=== PATIENT | female | born 1970 | race Caucasian/White ===

== ENCOUNTER 2016-12-07 10:42 | Emergency (ER) | payer MEDICAID ==
[2016-12-07 11:28] VITALS: BP 125/76
--- NOTE | 2016-12-07 13:01 | UC ---
Respiratory Complaint HPI - HPI Summary HPI Summary: Patient presents with two day onset sinus pain, pressure, with nasal stuffiness and sore throat. She reports dry cough and general feeling of fatigue amnd malaise. She denies headache, fever, chill, nausea or vomiting. She denies recent travel, ill contacts. - History of Current Complaint Chief Complaint: UCRespiratory Stated Complaint: SINUS ISSUE Time Seen by Provider: 12/07/16 12:25 Hx Obtained From: Patient Onset/Duration: Gradual Onset, Lasting Days Timing: Constant Severity Initially: Moderate Severity Currently: Moderate Character: Cough: Nonproductive Associated Signs And Symptoms: Positive: URI, Nasal Congestion, Sinus Discomfort - Risk Factors Pulmonary Embolism Risk Factors: Negative Cardiac Risk Factors: Negative Pseudomonas Risk Factors: Negative Tuberculosis Risk Factors: Negative - Allergies/Home Medications Allergies/Adverse Reactions: Allergies Allergy/AdvReac Type Severity Reaction Status Date / Time No Known Allergies Allergy Verified 12/07/16 11:24 PMH/Surg Hx/FS Hx/Imm Hx Previously Healthy: Yes - Surgical History Surgical History: Yes Surgery Procedure, Year, and Place: hysterectomy partial. hernia repair/mesh for bladder, - Family History Known Family History: Positive: None - Social History Occupation: Employed Full-time Lives: Alone Alcohol Use: Occasionally Substance Use Type: None Smoking Status (MU): Former Smoker Type: Cigarettes Have You Smoked in the Last Year: No When Did the Patient Quit Smoking/Using Tobacco: 2004 Review of Systems Constitutional: Fatigue Skin: Negative Eyes: Negative ENT: Sore Throat, Ear Ache, Nasal Discharge, Sinus Congestion, Sinus Pain/ Tenderness Respiratory: Negative Cardiovascular: Negative Gastrointestinal: Negative Genitourinary: Negative Motor: Negative Musculoskeletal: Negative All Other Systems Reviewed And Are Negative: Yes Physical Exam Triage Information Reviewed: Yes Appearance: Ill-Appearing Vital Signs: Initial Vital Signs Temp 98.1 F 12/07/16 11:25 Pulse 81 12/07/16 11:25 Resp 16 12/07/16 11:25 BP 125/76 12/07/16 11:25 Pulse Ox 100 12/07/16 11:25 Vital Signs Reviewed: Yes Eye Exam: Normal ENT: Positive: Nasal congestion, TM dull Neck exam: Normal Respiratory Exam: Normal Musculoskeletal Exam: Normal Skin Exam: Normal UC Diagnostic Evaluation - Laboratory O2 Sat by Pulse Oximetry: 100 Respiratory Course/Dx - Course Course Of Treatment: Patient presents with sinusitis and was treated with augmentin and sudafed. She was discharge in stable condition with the understanding that if her symptoms do not imrpove as anticipated to follow up with PCP. - Differential Dx/Diagnosis Differential Diagnosis/HQI/PQRI: Sinusitis Provider Diagnoses: sinusitis Discharge - Discharge Plan Condition: Stable Disposition: HOME Prescriptions: Amoxicillin/Clavulanate TAB* [Augmentin TAB 500 mg*] 500 mg PO BID #20 tab Pseudoephedrine HCL ER TAB* [Sudafed 12 Hour*] 120 mg PO BID #14 tab.er Patient Education Materials: Sinusitis (ED) Referrals: No Primary Care Phys,NOPCP [Primary Care Provider] -
== END 2016-12-07 13:00 | disposition home or self-care (01) ==
LOC: UCEAST 10:42
DX: J32.9 Chronic sinusitis, unspecified (principal); Z90.711 Acquired absence of uterus with remaining cervical stump; Z87.891 Personal history of nicotine dependence
CPT/HCPCS: 99212; G0463

== ENCOUNTER 2017-04-24 10:08 | Emergency (ER) | payer SELFPAY ==
[2017-04-24 10:21] VITALS: BP 129/83
--- NOTE | 2017-04-24 10:52 | UC ---
Back Pain HPI - HPI Summary HPI Summary: Patient presents with complaints of low back pain that started earlier today after she picked up several 50 pound bags of salt off the floor. She states the pain in constant, non-radiating, described as aching. She denies any incontinence of bowel or bladder, or saddle paresthesias. She states the pain is worse with movement and improves at rest. - History of Current Complaint Chief Complaint: UCBackPain Stated Complaint: BACK PAIN Time Seen by Provider: 04/24/17 10:32 Hx Obtained From: Patient Onset/Duration: Gradual Onset, Lasting Hours Timing: Constant Severity Initially: Moderate Severity Currently: Moderate Pain Intensity: 8 Character: Aching Aggravating Factor(s): Movement, Lifting, Bending Alleviating Factor(s): Rest Associated Signs And Symptoms: Positive: Negative - Risk Factors AAA Risk Factors: Negative TAD Risk Factors: Negative Cauda Equina Risk Factors: Negative Epidural Abscess Risk Factors: Negative - Allergies/Home Medications Allergies/Adverse Reactions: Allergies Allergy/AdvReac Type Severity Reaction Status Date / Time No Known Allergies Allergy Verified 04/24/17 10:21 PMH/Surg Hx/FS Hx/Imm Hx Previously Healthy: Yes - Surgical History Surgical History: Yes Surgery Procedure, Year, and Place: hysterectomy partial. hernia repair/mesh for bladder, - Family History Known Family History: Positive: None - Social History Occupation: Employed Full-time Lives: Alone Alcohol Use: Occasionally Substance Use Type: None Smoking Status (MU): Former Smoker Type: Cigarettes Have You Smoked in the Last Year: No When Did the Patient Quit Smoking/Using Tobacco: 2004 Review of Systems Constitutional: Negative Skin: Negative Eyes: Negative ENT: Negative Respiratory: Negative Cardiovascular: Negative Gastrointestinal: Negative Genitourinary: Negative Motor: Negative Neurovascular: Negative Musculoskeletal: Myalgia Neurological: Negative Psychological: Negative Is Patient Immunocompromised?: No All Other Systems Reviewed And Are Negative: Yes Physical Exam Triage Information Reviewed: Yes Appearance: Well-Appearing Vital Signs: Initial Vital Signs Temp 99.0 F 04/24/17 10:17 Pulse 70 04/24/17 10:17 Resp 16 04/24/17 10:17 BP 129/83 04/24/17 10:17 Pulse Ox 100 04/24/17 10:17 Vital Signs Reviewed: Yes Eye Exam: Normal ENT Exam: Normal Neck exam: Normal Neck: Positive: 1 Respiratory Exam: Normal Cardiovascular Exam: Normal Abdominal Exam: Normal Musculoskeletal Exam: Other - back inspection, vertebra are in good aligment without step-offs or deformities. there are no areas of eccymosis, erythema, or edema. Palpation, tenderness on palpation of the lateral lumbar musculature, no muscle spasams noted. Patellar reflexes are equal 1+, negative straight leg raise bilaterally. gait heel/toe. Neurological Exam: Normal Psychological Exam: Normal Skin Exam: Normal Back Pain Course/Dx - Course Course Of Treatment: Patient presents with lumbar sprain, and was treated with flexeril and ibuprofen. taken out of work for 2 days, and if her symtpoms persist beyond that date she was instructed to be re-evaluated. She verbalized understanding of and was in agreement with the discharge plan. - Differential Dx/Diagnosis Differential Diagnosis/HQI/PQRI: Strain, Sprain Provider Diagnoses: strain lumbar. sprain lumbar. back pain Discharge - Discharge Plan Condition: Stable Disposition: HOME Prescriptions: Cyclobenzaprine TAB* [Flexeril 10 MG TAB*] 10 mg PO TID PRN #14 tab MDD 3 PRN Reason: muscle spasam Ibuprofen TAB* [Motrin TAB* 600 MG] 600 mg PO Q6H PRN #14 tab PRN Reason: back pain Patient Education Materials: Acute Low Back Pain (ED) Forms: *Work Release Referrals: No Primary Care Phys,NOPCP [Primary Care Provider] -
== END 2017-04-24 11:10 | disposition home or self-care (01) ==
LOC: UCEAST 10:08
DX: S39.012A Strain of muscle, fascia and tendon of lower back, initial encounter (principal); S33.5XXA Sprain of ligaments of lumbar spine, initial encounter; M54.5 Low back pain; X50.0XXA Overexertion from strenuous movement or load, initial encounter; Y92.9 Unspecified place or not applicable
CPT/HCPCS: 99212; G0463

== ENCOUNTER 2017-04-26 14:14 | Emergency (ER) | payer SELFPAY ==
[2017-04-26 14:55] VITALS: BP 99/54
--- NOTE | 2017-04-26 16:26 | UC ---
Back Pain HPI - HPI Summary HPI Summary: Patient presents for re-evaluation to return to work tomorrow. She was out due to a back injury and she reports that her pain has resloved and her range has returned and she feels at this time she can do her job without any limitations. She report no pain at this visit. - History of Current Complaint Chief Complaint: UCBackPain Stated Complaint: BACK PAIN Time Seen by Provider: 04/26/17 16:13 Hx Obtained From: Patient ?: No Onset/Duration: Sudden Onset, Lasting Days Timing: Constant, Lasting Days Severity Initially: Moderate Severity Currently: None Pain Intensity: 2 Aggravating Factor(s): Movement, Lifting, Bending, Other - now resolved Alleviating Factor(s): Rest, OTC Meds Associated Signs And Symptoms: Positive: Negative - Risk Factors AAA Risk Factors: Negative TAD Risk Factors: Negative Cauda Equina Risk Factors: Negative Epidural Abscess Risk Factors: Negative - Allergies/Home Medications Allergies/Adverse Reactions: Allergies Allergy/AdvReac Type Severity Reaction Status Date / Time No Known Allergies Allergy Verified 04/26/17 14:55 PMH/Surg Hx/FS Hx/Imm Hx Previously Healthy: Yes - Surgical History Surgical History: Yes Surgery Procedure, Year, and Place: hysterectomy partial. hernia repair/mesh for bladder, - Family History Known Family History: Positive: None - Social History Occupation: Employed Full-time Lives: With Family Alcohol Use: Occasionally Substance Use Type: None Smoking Status (MU): Former Smoker Type: Cigarettes Have You Smoked in the Last Year: No When Did the Patient Quit Smoking/Using Tobacco: 2004 Review of Systems Constitutional: Negative Skin: Negative Eyes: Negative ENT: Negative Respiratory: Negative Cardiovascular: Negative Gastrointestinal: Negative Genitourinary: Negative Motor: Negative Neurovascular: Negative Musculoskeletal: Negative Neurological: Negative Psychological: Negative Is Patient Immunocompromised?: No All Other Systems Reviewed And Are Negative: Yes Physical Exam Triage Information Reviewed: Yes Appearance: Well-Appearing Vital Signs: Initial Vital Signs Temp 98.8 F 04/26/17 14:51 Pulse 91 04/26/17 14:51 Resp 18 04/26/17 14:51 BP 99/54 04/26/17 14:51 Pulse Ox 100 04/26/17 14:51 Vital Signs Reviewed: Yes Eye Exam: Normal ENT Exam: Normal Dental Exam: Normal Neck exam: Normal Neck: Positive: 1 Respiratory Exam: Normal Cardiovascular Exam: Normal Abdominal Exam: Normal Musculoskeletal Exam: Normal Neurological Exam: Normal Psychological Exam: Normal Skin Exam: Normal Back Pain Course/Dx - Course Course Of Treatment: Patient presents s/p traumatic injury to the lower back that occurred at work four days ago. She reports that all of her symptoms have resovled. SHe was examined and found to have no reproducible back pain, with full tange of motion. Therefore she will be released to return to work tomorrow. - Differential Dx/Diagnosis Differential Diagnosis/HQI/PQRI: Strain - acute lumbar sprain resolved., Sprain Provider Diagnoses: acute lumbar sprain resolved. Discharge - Discharge Plan Condition: Stable Disposition: HOME Patient Education Materials: Aspirin Combination (By mouth), Low Back Strain ( ED), Back Pain (ED) Forms: *Work Release Referrals: No Primary Care Phys,NOPCP [Primary Care Provider] -
== END 2017-04-26 16:17 | disposition home or self-care (01) ==
LOC: UCEAST 14:14
DX: Z04.8 Encounter for examination and observation for other specified reasons (principal); Z87.891 Personal history of nicotine dependence
CPT/HCPCS: 99211; G0463

== ENCOUNTER 2017-10-31 13:13 | Emergency (ER) | payer MEDICAID, OTHER ==
[2017-10-31 15:05] VITALS: BP 123/68
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
== END 2017-10-31 15:25 | disposition home or self-care (01) ==
LOC: UCEAST 13:13
DX: L23.7 Allergic contact dermatitis due to plants, except food (principal); Z87.891 Personal history of nicotine dependence
CPT/HCPCS: 99212; G0463

== ENCOUNTER 2017-12-27 09:25 | Emergency (ER) | payer MEDICAID, OTHER ==
[2017-12-27 09:52] VITALS: BP 112/75
--- NOTE | 2017-12-28 08:05 | UC ---
- Progress Note Progress Note: NO X-RAYS 12/27/17 Discharge - Sign-Out/Discharge Documenting (check all that apply): Patient Departure All imaging exams completed and their final reports reviewed: No Studies - Discharge Plan Condition: Stable Disposition: LEFT WITHOUT BEING SEEN Referrals: No Primary Care Phys,NOPCP [Primary Care Provider] - - Billing Disposition and Condition Condition: STABLE Disposition: Left Without Being Seen
== END 2017-12-27 10:16 | disposition left against medical advice (07) ==
LOC: UCEAST 09:25
DX: Z53.21 Procedure and treatment not carried out due to patient leaving prior to being seen by health care provider (principal)

== ENCOUNTER 2018-04-05 09:04 | Emergency (ER) | payer MEDICAID ==
[2018-04-05 10:02] VITALS: BP 126/92
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
== END 2018-04-05 10:53 | disposition home or self-care (01) ==
LOC: UCEAST 09:04
DX: J06.9 Acute upper respiratory infection, unspecified (principal); R03.0 Elevated blood-pressure reading, without diagnosis of hypertension; Z87.891 Personal history of nicotine dependence
CPT/HCPCS: 99212; G0463

== ENCOUNTER 2018-10-30 09:10 | Emergency (ER) | payer MEDICAID, OTHER ==
[2018-10-30 09:25] VITALS: BP 113/74
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
== END 2018-10-30 10:46 | disposition home or self-care (01) ==
LOC: UCEAST 09:10
DX: S39.012A Strain of muscle, fascia and tendon of lower back, initial encounter (principal); X50.9XXA Other and unspecified overexertion or strenuous movements or postures, initial encounter; Y93.E9 Activity, other interior property and clothing maintenance; Y92.019 Unspecified place in single-family (private) house as the place of occurrence of the external cause; Y99.8 Other external cause status; Z87.891 Personal history of nicotine dependence
CPT/HCPCS: 99212; G0463

== ENCOUNTER 2019-05-12 09:02 | Emergency (ER) | payer BC, OTHER ==
[2019-05-12 09:12] VITALS: BP 136/89
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
[2019-05-12] MEDS ORDERED: Fluorescein Sodium TOPICAL* 1 MG TEST STRIP OPHTHALMIC ONE (09:46)
[2019-05-12] MEDS ORDERED: Tetracaine 0.5% OPTH.SOL 4 ML* 1 DROP BTL ONE (09:52)
== END 2019-05-12 10:40 | disposition home or self-care (01) ==
LOC: UCEAST 09:02
DX: H57.89 Other specified disorders of eye and adnexa (principal); H53.8 Other visual disturbances; J34.89 Other specified disorders of nose and nasal sinuses; R05 Cough; Z87.891 Personal history of nicotine dependence
CPT/HCPCS: 99211; A9270-GY; G0463

== ENCOUNTER 2023-12-22 10:22 | Observation (INO) ==
[2023-12-22 10:43] LABS: ABS Basophils 0.1 10^3/uL (0.0-0.1); ABS Eosinophils 0.3 10^3/uL (0.0-0.5); ABS Lymphocytes 1.6 10^3/uL (1.0-4.8); ABS Monocytes 0.5 10^3/uL (0.0-0.9); ABS Neutrophils 7.6 10^3/uL (1.5-7.6); ABS Nucleated RBC 0.01 10^3/ul; Hematocrit 40.1 % (35-45); Hemoglobin 13.2 g/dL (11.5-14.3); Lymphocyte % 15.9 %; Mean Corpuscular Hemoglobin 26.7 pg (27-33); Mean Corpuscular Hgb Conc 32.8 g/dL (31-36); Mean Corpuscular Volume 81.5 fL (80-97); Mean Platelet Volume 7.2 fL (7.5-11.2); Nucleated Red Blood Cells % 0.1 %/100WBC (0.0-0.8); Platelet Count 241 10^3/uL (150-450); Red Blood Count 4.93 10^6/uL (3.63-4.92); Red Cell Distribution Width 16.2 % (12-17); White Blood Count 10.1 10^3/uL (3.8-11.8)
[2023-12-22 10:48] LABS: INR 1.2 (0.85-1.14)
[2023-12-22 11:29] LABS: Albumin 3.9 g/dL (3.2-5.2); Albumin/Globulin Ratio 1.7 (1-3); Calcium 8.6 mg/dL (8.6-10.3); Creatinine, Serum 0.79 mg/dL (0.51-0.95); Globulin 2.3 g/dL (2-4); Potassium 4.1 mmol/L (3.5-5.0); Total Bilirubin 0.7 mg/dL (0.2-1.0); Total Protein 6.2 g/dL (6.4-8.9); eGFR CKD-EPI 88.3 (>60)
[2023-12-22] MEDS: Albuterol/Ipratropium NEB.SOL (2.5/0.5 MG) 3 ML NEB.SOLN INH ONE (11:31)
[2023-12-22 12:18] LABS: High Sensitivity Troponin 1 Hr 128 pg/mL (<15); Rapid Strep Molecular Negative (Negative)
[2023-12-22] MEDS: Furosemide 40 mg/4 ml IV VIAL IV ONE (12:19)
[2023-12-22] MEDS: Iohexol 350 (CONTRAST) 500 ML MDV IV ONE (14:06)
[2023-12-22 15:47] LABS: HDL Cholesterol 39.4 mg/dL; Magnesium 2.1 mg/dL (1.9-2.7)
[2023-12-22 15:55] LABS: TSH Ultra Thyroid Stim Horm 0.87 mcIU/mL (0.34-5.60)
[2023-12-22] MEDS ORDERED: Albuterol/Ipratropium NEB.SOL (2.5/0.5 MG) 3 ML NEB.SOLN INH PRN ×2 (16:03→16:04)
[2023-12-22] MEDS ORDERED: Sulfur Hexaflouride MICROSPHR 25 MG VIAL IV PRN (16:33)
[2023-12-22] MEDS: Sulfur Hexaflouride MICROSPHR 25 MG VIAL IV PRN (16:53)
[2023-12-22] MEDS ORDERED: Enoxaparin 40 MG/0.4 ML SYR SUBCUT SCH (17:00)
[2023-12-22] MEDS: Albuterol/Ipratropium NEB.SOL (2.5/0.5 MG) 3 ML NEB.SOLN INH SCH (17:15)
[2023-12-22] MEDS: Enoxaparin 40 MG/0.4 ML SYR SUBCUT SCH (17:44)
[2023-12-22] MEDS: Empagliflozin 25 MG TAB PO SCH (21:03)
[2023-12-23] MEDS: guaiFENesin 100 mg/5 ml LIQ unit dose cup PO PRN (00:45)
[2023-12-23] MEDS: Albuterol/Ipratropium NEB.SOL (2.5/0.5 MG) 3 ML NEB.SOLN INH SCH (00:46)
[2023-12-23 06:14] LABS: Hematocrit 41.5 % (35-45); Hemoglobin 13.6 g/dL (11.5-14.3); Mean Corpuscular Hemoglobin 26.9 pg (27-33); Mean Corpuscular Hgb Conc 32.7 g/dL (31-36); Mean Corpuscular Volume 82.2 fL (80-97); Mean Platelet Volume 7.6 fL (7.5-11.2); Platelet Count 240 10^3/uL (150-450); Red Blood Count 5.05 10^6/uL (3.63-4.92); Red Cell Distribution Width 15.8 % (12-17); White Blood Count 7.8 10^3/uL (3.8-11.8)
[2023-12-23 06:47] LABS: Calcium 8.4 mg/dL (8.6-10.3); Creatinine, Serum 0.92 mg/dL (0.51-0.95); Potassium 4.2 mmol/L (3.5-5.0); eGFR CKD-EPI 73.5 (>60)
[2023-12-23] MEDS: Furosemide 40 mg/4 ml IV VIAL IV SCH (08:02)
[2023-12-24 07:31] LABS: ABS Basophils 0.1 10^3/uL (0.0-0.1); ABS Eosinophils 0.3 10^3/uL (0.0-0.5); ABS Lymphocytes 1.3 10^3/uL (1.0-4.8); ABS Monocytes 0.6 10^3/uL (0.0-0.9); ABS Neutrophils 4.5 10^3/uL (1.5-7.6); ABS Nucleated RBC 0.02 10^3/ul; Eosinophil % 3.8 %; Hematocrit 43.9 % (35-45); Hemoglobin 14.3 g/dL (11.5-14.3); Lymphocyte % 19.8 %; Mean Corpuscular Hemoglobin 26.9 pg (27-33); Mean Corpuscular Hgb Conc 32.6 g/dL (31-36); Mean Corpuscular Volume 82.6 fL (80-97); Mean Platelet Volume 7.8 fL (7.5-11.2); Nucleated Red Blood Cells % 0.2 %/100WBC (0.0-0.8); Platelet Count 233 10^3/uL (150-450); Red Blood Count 5.32 10^6/uL (3.63-4.92); White Blood Count 6.8 10^3/uL (3.8-11.8)
[2023-12-24 07:33] LABS: Calcium 8.3 mg/dL (8.6-10.3); Creatinine, Serum 0.87 mg/dL (0.51-0.95); Phosphorus 4.3 mg/dL (2.5-5.0); Potassium 3.9 mmol/L (3.5-5.0); eGFR CKD-EPI 78.6 (>60)
[2023-12-25 06:49] LABS: Hematocrit 43.4 % (35-45); Hemoglobin 14.6 g/dL (11.5-14.3); Mean Corpuscular Hemoglobin 27.3 pg (27-33); Mean Corpuscular Hgb Conc 33.6 g/dL (31-36); Mean Corpuscular Volume 81.2 fL (80-97); Mean Platelet Volume 7.7 fL (7.5-11.2); Platelet Count 264 10^3/uL (150-450); Red Blood Count 5.34 10^6/uL (3.63-4.92); Red Cell Distribution Width 15.8 % (12-17); White Blood Count 6.6 10^3/uL (3.8-11.8)
[2023-12-25 07:07] LABS: Calcium 8.5 mg/dL (8.6-10.3); Creatinine, Serum 0.83 mg/dL (0.51-0.95); Magnesium 2.2 mg/dL (1.9-2.7); Potassium 4.4 mmol/L (3.5-5.0); eGFR CKD-EPI 83.2 (>60)
[2023-12-25] MEDS ORDERED: VERAPAMIL 2.5 MG/ML 2 ML VIAL ** 5 mg/2 ml ONE (12:30)
[2023-12-25] MEDS ORDERED: Midazolam 5 mg/5 ml VIAL 1 mg/ml 5 ml VIAL (5 mg) ONE (12:30)
[2023-12-25] MEDS ORDERED: fentaNYL 100 mcg/2 ml 50 MCG/ML VIAL ONE (12:30)
[2023-12-25] MEDS ORDERED: nitroGLYCERIN DRIP 25,000 MCG/250 ML BTL ONE (12:31)
[2023-12-25] MEDS ORDERED: Heparin 1,000 UNIT/ML 10 ml (10,000 UNITS) CATHLAB/DIALYSIS ONE (12:31)
[2023-12-25] MEDS ORDERED: Heparin 2 UNITS/ML 1000 mls 2,000 ML IV ONE (12:31)
[2023-12-25] MEDS ORDERED: Iohexol 350 (CONTRAST) 200 ML MDV IV ONE (12:31)
[2023-12-25] MEDS ORDERED: Lidocaine 1% MPF 5 ML VIAL ONE ×2 (12:31→12:51)
[2023-12-25] MEDS ORDERED: Ondansetron 4 mg VIAL 2 MG/ML 2 ml VIAL ONE (13:28)
[2023-12-25 13:39] LABS: POC SO2 54 %
[2023-12-25 13:39] LABS: POC SO2 49 %
[2023-12-25 13:39] LABS: POC SO2 89 %
[2023-12-25 13:54] LABS: POC SO2 58 %
[2023-12-25 13:54] LABS: POC SO2 59 %
[2023-12-25 17:19] VITALS: BP 106/71
== END 2023-12-25 18:15 | disposition home or self-care (01) ==
LOC: EDHOLD 10:22 → ED 10:22 → SUATTDRO 14:04 → MEDTELE 15:27
PROVIDERS: ADMIT Student in an Organized Health Care Education/Training Program; ATTEND Hospitalist